=== PATIENT | female | born 1975 | race Caucasian/White ===

== ENCOUNTER 2023-02-06 11:50 | Emergency (ER) | payer OTHER ==
[~2023-02-06] VITALS: Ht 154.9 cm; Wt 81.7 kg
[~2023-02-06 11:50] MED LIST: AMOX500 PO; AZIT250 PO; CEPH500 PO; CODGUAEL PO; CRUTCH3 USE; FLUO20; HYDACE5 PO; HYDGUAL120 PO; IBUP600 PO; IBUP800; MULVITMINE PO; NAPR500 PO; NITR100CA PO; OXYCODONE; PROM25 PO; PROM25S PR; RXHYDACE PO; RXPROM25S PR; SULTRIDS PO
[2023-02-06 12:30] VITALS: BP 119/58
[2023-02-06] MEDS ORDERED: CEPH500 PO (12:33)
== END 2023-02-06 12:34 | disposition home or self-care (01) ==
LOC: EDBD 11:50 → ER 11:50
DX: L03.032 Cellulitis of left toe (principal); Z59.00 Homelessness unspecified; Z91.018 Allergy to other foods; Z88.8 Allergy status to other drugs, medicaments and biological substances
CPT/HCPCS: 99282